=== PATIENT | female | born 1960 | race Two or more races ===

== ENCOUNTER → 2021-03-16 | Outpatient (CLI) | payer OTHER ==
[2020-11-03 12:36] VITALS: BP 100/44
[~2021-03-16] MED LIST: ASPI-886 PO; ATOR40TA59 PO; METO-239 PO; METO25TA4 PO; NITR0.4T24 SL; PRAS10TA9 PO
--- NOTE | 2021-03-17 12:26 | RAD ---
MR#: [id number] Date of Study: 03/16/2021 Ordering Physician: RUSSELL MOODY, Referring Physician: NAHEED SOUZA Tech: RT Toby (R) (N) APPROVED REPORT Test Type: Exercise Stress Nurse/Tech: Steve Alexander RN Test Indications: CAD, Left Sided Chest Pain. Cardiac History: HTN, 10/2020=Cardiac stent x1, See EMR. Medications: See EMR. Medical History: See EMR. Resting ECG: SB Resting Heart Rate: 59 bpm Resting Blood Pressure: 167/69mmHg Pretest Chest Pain: No chest pain Nurse/Tech Notes Lungs CTA, Heart tones regular. Consent: The procedure was explained to the patient in lay terms. Informed consent was witnessed. Cali eout was entered into [facility]. History and Stress Test performed by RT Toby (R) (N) Stress Symptoms No chest pain or symptoms. POST EXERCISE Reason for Termination: Reached target heart rate Target HR: Yes Max HR: 149 bpm 93% of Maximum Predicted HR: 160 bpm Exercise duration: 8:06 min:sec, 3 Stage Exercise capacity: 10.0METs Max Blood Pressure: 190/88mmHg Blood Pressure response to exercise: Abnormal increase in blood pressure during stress. Heart Rate response to exercise: WNL Chest Pain: No. Arrhythmia: No. ST Change: No. INTERPRETATION Stress EKG Conclusion: The resting EKG shows a sinus rhythm and mild ST-T wave changes in the anterio r leads. The stress EKG shows no significant changes from baseline. No EKG evidence of stress-induced ischemia. Imaging Protocol IMAGE PROTOCOL: Rest Tc-99m/stress Tc-99m 1 day Rest: Stress: Viability: Radiopharm.Tc99m FhbrlqmbcAk98d Sestamibi Jrqz12sUb 31.1mCi Duration 13min. 13min. Img Date 03/16/2021 03/16/2021 Inj-Img [id number]. 60min. Post-Injection Exercise: 1 minute Rest Admin Site:IV - Right AntecubitalAdministrator:BAILEY Altman, ARRT (R)(N) Stress Admin Site: IV - Right AntecubitalAdministrator: Julianne Vang RT (R)(N) STRESS DATA End Diast. Vol.109.0mlAv. Heart Rate78.0bpm LVEDV index BSA65.0mlCardiac Output0.0L/min End Syst. Vol.54.0mlCO Index BSA0.0L/min LVESV index BSA32.0mlMyocardial Pvai396.0g Eject. Nvppctjc59.0% Stress Scores Regional WT1.00Summed WT18.00 Regional WM0.00Summed WM13.00 LV Perfusion The stress scans show a mild apical defect. The rest scans show a mild apical defect. Nuclear imaging show a fixed apical defect that is suggestive but not diagnostic of a previous infarc t. Wall Motion Left ventricular wall function appears normal with an ejection fraction of 55%. LV Perf. Quant 17 Seg. SSS20.00 17 Seg. SRS17.00 17 Seg. SDS4.00 Stress Defect Extent (% LAD)62.50Rest Defect Extent (% LAD)61.30Rev. Defect Extent (% LAD)20.60 Stress Defect Extent (% LCX) 8.80Rest Defect Extent (% LCX)0.00Rev. Defect Extent (% LCX)8.80 Stress Defect Extent (% RCA)12.20Rest Defect Extent (% RCA)6.70Rev. Defect Extent (% RCA)10.00 Stress Defect Extent (% BEAR)40.20Rest Defect Extent (% BEAR)35.00Rev. Defect Extent (% BEAR)19.60 Conclusion 1. Good exercise tolerance with the patient walking for 8 minutes and 6 seconds on a Patrick protocol. 2. No reported chest pain with exertion. 3. Mildly abnormal baseline EKG but no EKG evidence of stress-induced ischemia. 4. Nuclear imaging shows a fixed apical defect suggestive of a possible prior infarct. 5. Left ventricular systolic function appears normal with an ejection fraction of 55%. 6. Moderate risk treadmill nuclear stress test. Signed by : Adrián Bauer MD Electronically Approved : 03/17/2021 12:26:21
== END ==
LOC: NM 08:42
PROVIDERS: ATTEND Internal Medicine Cardiovascular Disease
DX: I51.89 Other ill-defined heart diseases (principal); I25.10 Atherosclerotic heart disease of native coronary artery without angina pectoris
CPT/HCPCS: 78452; 93017; A9500